=== PATIENT | female | born 1995 | race Two or more races ===

== ENCOUNTER 2024-09-22 19:14 | Emergency (ER) | payer MEDICAID ==
[~2024-09-22] VITALS: Ht 154.9 cm; Wt 78.8 kg
--- NOTE | 2024-09-22 20:25 | DVH ---
EXAM: CT NECK WITHOUT CONTRAST INDICATION: R/O foreign body x6 days Exam Date: 09/22/2024 07:18 PM COMPARISON: None TECHNIQUE: CT of the neck with intravenous contrast. RADIATION DOSE: CTDIvol: 17.62 mGy, DLP: 464.78 mGy*cm CONTRAST: Type of contrast: Contrast injected: ml Contrast ingested: ml FINDINGS: No radiopaque foreign body identified. No prevertebral soft tissue abnormality noted. There is normal alignment of the cervical spine. The cervical vertebral bodies are normal in appearance. Paraverteb ral soft tissues appear unremarkable. No disc-osteophyte, spinal canal or neurAL foraminal stenosis a t any of the levels in the cervical spine. IMPRESSION: No abnormality demonstrated
[2024-09-22 21:00] VITALS: BP 122/82; PULSE 86; RESP 16; TEMP 98.5; O2SAT 97
--- NOTE | 2024-09-22 21:26 | ED.PDOC ---
Eye-HPI HPI Comments 29-year-old female presents to ER for rule out foreign body. Patient reports that she has had a sensation of foreign body to throat that started six days ago while she was eating a hamburger. Denies choking. Denies any pain. Patient presents to ER ambulatory on arrival, with steady gait, speaking in clear and complete sentences, in no distress. Notes that she is able to swallow liquids/solids but does have sensation of foreign body throat upon doing so. Denies shortness of breath, nausea/vomiting, skin changes, chest pain or any further symptoms/complaints Chief Complaint: Foreign Body Time Seen by MD: 19:27 Primary Care Provider: UNKNOWN Reviewed Notes: Nurses Notes, Medications, Allergies Allergies: Coded Allergies: NO KNOWN ALLERGIES (Unverified , 09/22/24) Information Source: Patient Mode of Arrival: Ambulatory Past Medical History PAST MEDICAL HISTORY: Denies Surgical History: Denies all surgeries LMP 08-24-24 Family History Family History: Unknown Social History Smoker: Non-Smoker Alcohol: Denies ETOH Use Drugs: Denies Drug Use Lives In: Home Constitutional: denies: chills, diaphoresis, fatigue, fever, malaise, sweats, weakness, others EENTM: reports: others (As stated in HPI) Respiratory: denies: cough, hemoptysis, orthopnea, SOB at rest, shortness of breath, SOB with excertion, stridor, wheezing, others Cardiovascular: denies: chest pain, dizzy spells, diaphoresis, Dyspnea on exertion, edema, irregular heart beat, left arm pain, lightheadedness, palpitations, PND, syncope, others Gastrointestinal: denies: abdomen distended, abdominal pain, blood streaked bowels, constipated, diarrhea, dysphagia, difficulty swallowing, hematemesis, melena, nausea, poor appetite, poor fluid intake, rectal bleeding, rectal pain, vomiting, others Genitourinary: denies: abnormal vagina bleeding, burning, dyspareunia, dysuria, flank pain, frequency, hematuria, incontinence, pain, , vagina discharge, urgency, others Neurological: denies: dizziness, fainting, headache, left sided numbness, left sided weakness, numbness, paresthesia, pre-existing deficit, right sided numbness, right sided weakness, seizure, speech problems, tingling, tremors, weakness, others Musculoskeletal: denies: back pain, gout, joint pain, joint swelling, muscle pain, muscle stiffness, neck pain, others Integumetry: denies: bruises, change in color, change in hair/nails, dryness, laceration, lesions, lumps, rash, wounds, others Allergic/Immunocompromised: denies: Difficulty Healing, Frequent Infections, Hives, Itching, others Hematologic/Lymphatic: denies: anemia, blood clots, easy bleeding, easy bruising, swollen glands, others Endocrine: denies: excessive hunger, excessive sweating, excessive thirst, excessive urination, flushing, intolerance to cold, intolerance to heat, unexplained weight gain, unexplained weight loss, others Psychiatric: denies: anxiety, bipolar disorder, depression, hopeless, panic disorder, schizophrenia, sleepless, suicidal, others Physical Exam General Appearance: No Apparent Distress, Obese HEENT: Normal ENT Inspection, PERRL/EOMI, Pharynx Normal (No foreign body appreciated), TMs Normal Neck: Full Range of Motion, Non-Tender, Normal Respiratory: Chest Non-Tender, Lungs Clear, No Accessory Muscle Use, No Resp iratory Distress, Normal Breath Sounds Cardiovascular: No Murmur, No Gallop, Regular Rate/Rhythm Breast Exam: Deferred Gastrointestinal: NOT DONE Genitalia: Deferred Pelvic: Deferred Rectal: Deferred Extremities: Normal capillary refill, Normal range of motion Neurologic: Alert, No Motor Deficits, Normal Affect, Normal Mood, No Sensory Deficits Cerebellar Function: Normal Reflexes: Normal Skin: Dry, Normal Color, Warm Lymphatic: No Adenopathy Was a procedure done? Was a procedure done?: No Sedation Sedation?: No EENT DIFF Eye: N/A Sore Throat: Epiglottitis, Mononeucleosis, Peritonsillar Abscess, Other (Foreign body) X-Ray, Labs, Meds, VS Vital Signs Date Time Temp Pulse Resp B/P (MAP) Pulse Ox O2 Delivery O2 Flow Rate FiO2 09/22/24 19:30 98.5 86 16 122/82 (95) 97 98.5 PATIENT: JOSE MIGUEL MONTIEL: [id number]: [id number] : 1995 LOC: ER ROOM / BED: / AGE / SEX: 29 / F ADM STATUS: REG ER SERVICE 28 ORDERING PHYSICIAN: YULI CORTEZ PROCEDURE(s): NKICT - NECK WITHOUT CONTRAST REASON: R/O foreign body x6 days ORDER NUMBER(s): [id number], ACCESSION NUMBER(s): [id number] EXAM: CT NECK WITHOUT CONTRAST INDICATION: R/O foreign body x6 days Exam Date: 09/22/2024 07:18 PM COMPARISON: None TECHNIQUE: CT of the neck with intravenous contrast. RADIATION DOSE: CTDIvol: 17.62 mGy, DLP: 464.78 mGy*cm CONTRAST: Type of contrast: Contrast injected: ml Contrast ingested: ml FINDINGS: No radiopaque foreign body identified. No prevertebral soft tissue abnormality noted. There is normal alignment of the cervical spine. The cervical vertebral bodies are normal in appearance. Paravertebral soft tissues appear unremarkable. No disc-osteophyte, spinal canal or neurAL foraminal stenosis at any of the levels in the cervical spine. IMPRESSION: No abnormality demonstrated ATED BY: SLY BORRERO MD DICTATED DATE/TIME: 09/22/242021 SIGNED BY: SLY BORRERO MD SIGNED DATE/TIME: 09/22/242021 CC: CT neck without foreign body reviewed Patient tolerating p.o. intake well and in no distress during ER visit/prior to discharge Diet education discussed Advised to follow up with PCP and ENT in 1-2 days Patient verbalized understanding and agreeable with current plan of care Advised to return to ER immediately if symptoms worsen Images Reviewed?: Images reviewed and evaluated by me Time of 1ST Reevaluation: 21:02 Reevaluation 1ST: N/A Patient Education/Counseling: Diagnosis, Treatment, Prognosis, Need For Follow Up Family Education/Counseling: No Family Present Departure 1 Departure Time of Disposition: 21:22 Impression: Primary Impression: Encounter for observation for suspected ingested foreign body ruled out Disposition: 01 HOME / SELF CARE / HOMELESS Condition: Stable Critical Care Note Critical Care Time?: No Stability Stability form required: No Heart Score Heart Score: Heart Score Response (Comments) Value History N/A 0 EKG N/A 0 Age N/A 0 Risk Factors N/A 0 Troponin N/A 0 Total 0 YULI CORTEZ September 22, 2024 21:26
== END 2024-09-22 21:10 | disposition home or self-care (01) ==
LOC: ER 19:21
DX: Z03.821 Encounter for observation for suspected ingested foreign body ruled out (principal); R09.A2 Foreign body sensation, throat
CPT/HCPCS: 70490